=== PATIENT | male | born 1985 | race Caucasian/White ===

== ENCOUNTER 2018-10-27 11:16 | Emergency (ER) | payer OTHER ==
[~2018-10-27] VITALS: Ht 182.9 cm; Wt 79.4 kg
[~2018-10-27 11:16] MED LIST: ATIVAN0.5 MG PO
[2018-10-27 11:54] LABS: ABSOLUTE EOSINOPHILS 0.1 thou/uL (0.0-0.7); ABSOLUTE LYMPHOCYTES 1.7 thou/uL (0.8-5.3); ABSOLUTE MONOCYTES 0.5 thou/uL (0.0-1.2); ABSOLUTE NEUTROPHILS 4.9 thou/uL (1.6-8.1); BASOPHILS 0.5 %; EOSINOPHILS 1.5 %; HEMATOCRIT 37.4 % (42.0-52.0); HEMOGLOBIN 12.9 gm/dL (14.0-18.0); LYMPHOCYTES 23.3 %; MCH 30.5 pg (26.0-34.0); MCHC 34.6 g/dL (28.0-37.0); MCV 88.2 fL (80.0-100.0); MONOCYTES 6.3 %; MPV 6.5 fl. (7.2-11.1); NUCLEATED RBCS 0 /100WBC; PLATELET COUNT* 238 thou/uL (150-400); POLYS 68.4 %; RBC 4.24 mil/uL (4.50-6.00); RDW-CV 13.5 % (10.5-14.5); WBC 7.1 thou/uL (4.0-11.0)
[2018-10-27 12:14] LABS: ALBUMIN 3.4 g/dL (3.4-5.0); ALKALINE PHOSPHATASE 59 U/L (46-116); ANION GAP 6 mmol/L (7-16); BUN 14 mg/dL (7-18); CHLORIDE 105 mmol/L (98-107); CO2 31 mmol/L (21-32); CREATININE 1.5 mg/dL (0.6-1.3); GLUCOSE 81 mg/dL (70-99); LIPASE 94 U/L (73-393); POTASSIUM 3.6 mmol/L (3.5-5.1); SGOT 37 U/L (15-37); SGPT 109 U/L (30-65); SODIUM 142 mmol/L (136-145); TOTAL BILIRUBIN 0.3 mg/dL (<0.1-1.0); TOTAL PROTEIN 6.2 g/dL (6.4-8.2); TROPONIN-I LEVEL <0.06 ng/mL (<0.06)
[2018-10-27] MEDS ORDERED: ONDANSETRON HCL4 M2 PO (13:30)
[2018-10-27] MEDS ORDERED: NABUMETONE 750750 M1 PO (13:30)
[2018-10-27 13:41] LABS: URINE BILIRUBIN NEGATIVE (Negative); URINE BLOOD NEGATIVE (Negative); URINE CLARITY CLEAR; URINE COLOR YELLOW; URINE GLUCOSE-RANDOM NEGATIVE (Negative); URINE KETONES NEGATIVE (Negative); URINE LEUKOCYTES-REFLEX NEGATIVE (Negative); URINE NITRITE-REFLEX NEGATIVE (Negative); URINE PROTEIN NEGATIVE (Negative); URINE SPECIFIC GRAVITY <= 1.005 (1.005-1.030); URINE UROBILINOGEN 0.2 E.U./dl (0.2-1.0)
[2018-10-27 13:57] LABS: AMP/METHAMP POSITIVE (Negative); BARBITURATES Negative (Negative); BENZODIAZEPINES Negative (Negative); COCAINE Negative (Negative); METHADONE Negative (Negative); OPIATES Negative (Negative); PCP Negative (Negative); THC Negative (Negative)
[2018-10-27 14:24] VITALS: BP 118/69
--- NOTE | 2018-10-27 15:17 | EKG ---
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 10/27/18 1516 1220 1220 Parker Jackman MD, FACC /EPI
== END 2018-10-27 14:24 | disposition home or self-care (01) ==
LOC: M.ERS 11:16
PROVIDERS: Nurse Practitioner Family
DX: R10.11 Right upper quadrant pain (principal); F15.10 Other stimulant abuse, uncomplicated; E86.0 Dehydration; F17.200 Nicotine dependence, unspecified, uncomplicated

== ENCOUNTER 2019-08-27 07:08 | Inpatient (IN) | payer OTHER ==
[2019-08-27] VITALS (123 sets, daily range): BP systolic 57–152; BP diastolic 33–94
[~2019-08-27] VITALS: Ht 182.9 cm; Wt 75.8 kg
[~2019-08-27 07:08] MED LIST changes: +NABUMETONE 750750 M1 PO; +ONDANSETRON HCL4 M2 PO
[2019-08-27 08:29] LABS: HEMATOCRIT 37.7 % (42.0-52.0); HEMOGLOBIN 13.2 gm/dL (14.0-18.0); MCH 30.8 pg (26.0-34.0); MCHC 34.9 g/dL (28.0-37.0); MCV 88.2 fL (80.0-100.0); MPV 6.6 fl. (7.2-11.1); NUCLEATED RBCS 0 /100WBC; PLATELET COUNT* 192 thou/uL (150-400); RBC 4.28 mil/uL (4.50-6.00); RDW-CV 11.8 % (10.5-14.5)
[2019-08-27 08:41] LABS: CALCIUM 8.3 mg/dL (8.5-10.1); CREATININE 1.7 mg/dL (0.6-1.3); POTASSIUM 3.4 mmol/L (3.5-5.1)
[2019-08-27 08:45] LABS: ALBUMIN 3.3 g/dL (3.4-5.0); TOTAL PROTEIN 6.3 g/dL (6.4-8.2)
[2019-08-27 08:54] LABS: INFLUENZA A ANTIGEN Negative (Negative); INFLUENZA B ANTIGEN Negative (Negative)
[2019-08-27 09:14] LABS: APTT 26.3 Seconds (25.0-31.3); INR 1.2; PROTIME 11.9 Seconds (9.20-11.50)
[2019-08-27 09:28] LABS: URINE BLOOD NEGATIVE (Negative); URINE CLARITY CLEAR; URINE COLOR DARK YELLOW; URINE GLUCOSE-RANDOM NEGATIVE (Negative); URINE KETONES TRACE (Negative); URINE LEUKOCYTES-REFLEX NEGATIVE (Negative); URINE NITRITE-REFLEX NEGATIVE (Negative); URINE PROTEIN 2+ (Negative)
--- NOTE | 2019-08-27 09:29 | NUR ---
PT ACCIDENTLY PUULLED IV OUT
[2019-08-27 09:31] LABS: ICTOTEST (BILI CONFIRMATORY) Positive (Negative); URINE BILIRUBIN 2+ (Negative)
[2019-08-27 09:36] LABS: AMP/METHAMP POSITIVE (Negative); BARBITURATES Negative (Negative); BENZODIAZEPINES Negative (Negative); COCAINE Negative (Negative); METHADONE Negative (Negative); OPIATES POSITIVE (Negative); PCP Negative (Negative); THC Negative (Negative)
[2019-08-27 09:39] LABS: SQUAMOUS 0-3 Few /LPF (0-3)
[2019-08-27 09:40] LABS: URINE RBC 0-2 Rare /HPF (0-2); URINE WBC-REFLEX 0-5 Rare /HPF (0-5)
[2019-08-27 09:41] LABS: COARSE GRANULAR CASTS 0-3 Few /LPF (None Seen); CRYSTALS None Seen /LPF (None Seen); HYALINE CASTS >10 Many /LPF (None Seen); MUCUS >6 Heavy strn/LPF (None Seen)
--- NOTE | 2019-08-27 10:03 | NUR ---
PT VS UNSTABLE NOTIFIED PT MOVED TO ER ROOM 1 FOR CENTRAL LINE PLACEMNET
--- NOTE | 2019-08-27 11:04 | NUR ---
CENTRAL LINE PLACED BY REJ. CONSENT SIGNED. XRAY IN ROOM. PLACEMENT CONFIRMED BY .
[2019-08-27 11:11] LABS: ABSOLUTE LYMPHOCYTES 0.1 thou/uL (0.8-5.3); ABSOLUTE NEUTROPHILS 3.8 thou/uL (1.6-8.1); PLATELET ESTIMATE ADEQUATE
[2019-08-27 11:12] LABS: ANISOCYTOSIS 1+; POIKILOCYTOSIS 1+
--- NOTE | 2019-08-27 19:03 | NUR ---
ASSUMED CARE FROM ER NURSE. PATIENT MADE COMFORTABLE IN ROOM AND PLACED ON THE MONITOR. PATIENT BP LOW, PLACED ON LEVOPHED PER ORDERS AND TITRATED NEEDED. PATIENT C/O PAIN ALL OVER HOWEVER REALLY C/O ABDOMINAL PAIN. ONCE BP WAS STABLE CALL PLACED TO MD FOR PAIN MEDICATION ORDERS. MORPHINE GIVEN PER ORDERS AND DID RELIEVE A GREAT DEAL OF THE PAIN. PATIENT BROTHER RODOLFO WAS AT BEDSIDE THIS AFTERNOON AND TOLD THIS NURSE THAT THE PATIENT WAS IN THIS HOSPITAL 2 YEARS AGO FOR WHAT HE BELIEVED TO BE THE SAME REASON THIS TIME. 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 DR QUESADA WAS CALLED AND MADE AWARE OR THE NEW FINDINGS. DR SCALES CONSULTED AND DID SEE THE PATIENT. NO FURTHER CONCERNS AT THIS TIME. WILL CONTINUE TO MONITOR AND CARE PER PLAN OF CARE.
[2019-08-28] VITALS (82 sets, daily range): BP systolic 97–170; BP diastolic 39–125
[2019-08-28 06:11] LABS: HEPATITIS B SURFACE AG Negative (Negative)
--- NOTE | 2019-08-28 07:25 | NUR ---
ASSESSMENTS CHARTED. SPOKE WITH DR. DRAKE ABOUT INCREASING ATIVAN ORDER TO TREAT DRUG WITHDRAWAL SYMPTOMS. ORDERS RECEIVED. PATIENT FREQUENTLY PULLING OFF CABLES AND LINES AND ATTEMPTING TO GET OUT OF BED. FALL PRECAUTIONS AND BED ALARM IN PLACE. PATIENT REMAINS IN CONTACT ISOLATION FOR MRSA. PATIENT SCHEDULED FOR ABDOMINAL ULTRASOUND IN AM. HAS BEEN NPO FOR THE DURATION OF THE SHIFT.
[2019-08-28 10:11] LABS: HEMATOCRIT 35.9 % (42.0-52.0); HEMOGLOBIN 12.5 gm/dL (14.0-18.0); MCH 30.7 pg (26.0-34.0); MCHC 34.8 g/dL (28.0-37.0); MCV 88.1 fL (80.0-100.0); MPV 7.5 fl. (7.2-11.1); NUCLEATED RBCS 0 /100WBC; PLATELET COUNT* 150 thou/uL (150-400); RBC 4.07 mil/uL (4.50-6.00); RDW-CV 11.7 % (10.5-14.5)
[2019-08-28 10:12] LABS: WBC 27.4 thou/uL (4.0-11.0)
[2019-08-28 10:23] LABS: CALCIUM 7.5 mg/dL (8.5-10.1); MAGNESIUM 1.3 mg/dL (1.8-2.4); PHOSPHORUS* 2.3 mg/dL (2.5-4.9)
[2019-08-28 10:25] LABS: ALBUMIN 2.8 g/dL (3.4-5.0); CALCIUM 7.5 mg/dL (8.5-10.1); CREATININE 1.1 mg/dL (0.6-1.3); POTASSIUM 3.7 mmol/L (3.5-5.1); TOTAL BILIRUBIN 2.1 mg/dL (<0.1-1.0); TOTAL PROTEIN 5.8 g/dL (6.4-8.2)
[2019-08-28 10:26] LABS: INR 1.4; PROTIME 13.8 Seconds (9.20-11.50)
--- NOTE | 2019-08-28 10:34 | EKG ---
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 : 1985 Requested By: Teofilo Crockett Order Number: [id number] MD: Teto Steen Measurements Intervals [place] Rate: 112 P: 63 AL: 160 QRS: 83 QRSD: 116 T: 31 QT: 336 QTc: 459 Interpretive Statements Sinus tachycardia Nonspecific intraventricular conduction delay Borderline ST elevation, anterolateral leads Compared to ECG 10/27/2018 12:20:49 ST (T wave) deviation now present Sinus rhythm no longer present Electronically Signed On 08-28-2019 10:33:20 CORPORATE TRAVEL MANAGER by Teto Steen [email or web address] <ELECTRONICALLY SIGNED> By: Manuel Steen MD, [facility] 08/28/19 1033 1017 1017 Manuel Steen MD, [facility] /EPI
[2019-08-28 10:36] LABS: % SATURATION 4 % (20-39); IRON 8 ug/dL (50-175)
[2019-08-28 11:01] LABS: ABSOLUTE LYMPHOCYTES 2.2 thou/uL (0.8-5.3); ABSOLUTE MONOCYTES 0.5 thou/uL (0.0-1.2); ABSOLUTE NEUTROPHILS 24.7 thou/uL (1.6-8.1); METAMYELOCYTES 1 %; PLATELET ESTIMATE ADEQUATE
[2019-08-28 11:04] LABS: TOXIC GRANULATION 1+
[2019-08-28 17:25] LABS: URINE BILIRUBIN NEGATIVE (Negative); URINE BLOOD 2+ (Negative); URINE CLARITY CLEAR; URINE COLOR YELLOW; URINE GLUCOSE-RANDOM NEGATIVE (Negative); URINE KETONES NEGATIVE (Negative); URINE LEUKOCYTES-REFLEX NEGATIVE (Negative); URINE NITRITE-REFLEX NEGATIVE (Negative); URINE PROTEIN NEGATIVE (Negative); URINE SPECIFIC GRAVITY 1.015 (1.005-1.030)
[2019-08-28 17:32] LABS: AMP/METHAMP POSITIVE (Negative); BARBITURATES Negative (Negative); BENZODIAZEPINES Negative (Negative); COCAINE Negative (Negative); METHADONE Negative (Negative); OPIATES POSITIVE (Negative); PCP Negative (Negative); THC Negative (Negative)
[2019-08-28 17:36] LABS: SQUAMOUS 0-3 Few /LPF (0-3)
[2019-08-28 17:37] LABS: BACTERIA-REFLEX 1-9 Few /HPF (None Seen); CASTS None Seen /LPF (None Seen); CRYSTALS None Seen /LPF (None Seen); MUCUS None Seen strn/LPF (None Seen); URINE WBC-REFLEX 0-5 Rare /HPF (0-5)
[2019-08-29] VITALS (18 sets, daily range): BP systolic 100–144; BP diastolic 59–84
[2019-08-29 02:06] LABS: HIV-1/HIV-2 ANTIBODY Non Reactive (Non Reactive)
--- NOTE | 2019-08-29 04:35 | NUR ---
ASSUMED CARE AT 1900H,ON RA AND TOLERATED.PT WAS ORIENTED,SOMETIMES FORGETFUL AND AGITATED WITH HEADACHE.NO DISTRESS NOTED,PRN MEDS GIVEN.KEPT ORIENTED AND SAFE.CONTINUE MONITORING AND TOWARD GOALS.
[2019-08-29 09:50] LABS: ABSOLUTE BASOPHILS 0.1 thou/uL (0.0-0.2); ABSOLUTE EOSINOPHILS 0.1 thou/uL (0.0-0.7); ABSOLUTE LYMPHOCYTES 1.4 thou/uL (0.8-5.3); ABSOLUTE MONOCYTES 0.6 thou/uL (0.0-1.2); ABSOLUTE NEUTROPHILS 20.3 thou/uL (1.6-8.1); BASOPHILS 0.3 %; EOSINOPHILS 0.5 %; HEMATOCRIT 31.5 % (42.0-52.0); HEMOGLOBIN 11.1 gm/dL (14.0-18.0); LYMPHOCYTES 6.2 %; MCH 30.9 pg (26.0-34.0); MCHC 35.2 g/dL (28.0-37.0); MCV 87.8 fL (80.0-100.0); MONOCYTES 2.7 %; MPV 8.4 fl. (7.2-11.1); NUCLEATED RBCS 0 /100WBC; PLATELET COUNT* 119 thou/uL (150-400); POLYS 90.3 %; RBC 3.58 mil/uL (4.50-6.00); WBC 22.4 thou/uL (4.0-11.0)
[2019-08-29 10:00] LABS: ALBUMIN 2.8 g/dL (3.4-5.0); CALCIUM 8.1 mg/dL (8.5-10.1); POTASSIUM 3.4 mmol/L (3.5-5.1); TOTAL BILIRUBIN 1.2 mg/dL (<0.1-1.0); TOTAL PROTEIN 5.4 g/dL (6.4-8.2)
--- NOTE | 2019-08-29 10:56 | NUR ---
ICU rounds: Pt in and out of alertness. Pt has enlarged liver. Hx of ETOH and meth abuse. 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 Pt having meth w/drawals. Septic. Droplet precautions pending antiviral panel. Per nurse, brother willing to assist at dc, brother wanting inpt drug rehab. Pt is patient pay, continues to work, but [employer] to eval for MYRNA. CM to reach out brother.
--- NOTE | 2019-08-29 17:03 | EKG ---
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: : 1985 Requested By: Zak Parnell Order Number: [id number] MD: Elmo Andres Measurements Intervals [place] Rate: 76 P: 0 ND: 133 QRS: 71 QRSD: 109 T: 52 QT: 391 QTc: 440 Interpretive Statements Sinus rhythm RSR' in V1 or V2, right VCD or RVH Compared to ECG 08/27/2019 10:17:37 Right ventricular hypertrophy now present RSR' in V1 or V2 now present Sinus tachycardia no longer present Intraventricular conduction delay no longer present ST (T wave) deviation no longer present Electronically Signed On 08-29-2019 17:02:58 CROSS TIE MAKER by Elmo Andres [email or web address] <ELECTRONICALLY SIGNED> By: Elmo Andres MD, FACC 08/29/19 1702 1252 1252 Elmo Andres MD, FAC /EPI
--- NOTE | 2019-08-29 18:48 | NUR ---
PATIENT SEEN BY DR. SANDOVAL . NO ORDERS RECEIVED AT THIS TIME.
[2019-08-30] VITALS (7 sets, daily range): BP systolic 107–144; BP diastolic 58–100
--- NOTE | 2019-08-30 04:45 | NUR ---
VITALS STABLE, AFEBRILE. PT COMPLAINS OF CONSTANT,THROBBING HEADACHE. ANXIOUS TO GET OUT OF BED AND WORRIED ABOUT HIS ELECTRICITY BILL HE HAS TO TAKE CARE OF. WONDERING IF HE COULD GET DISCHARGED TO TAKE CARE OF THAT AND GET ADMITTED BACK. PLACED ON SEIZURE PRECAUTIONS. STEADY ON FEET TO USE BEDSIDE COMMODE, BMX1. UOP 3000 CC. OTHERWISE UNEVENTFUL NIGHT. WILL CONTINUE MONITORING.
[2019-08-30 04:47] LABS: CALCIUM 7.9 mg/dL (8.5-10.1); CREATININE 0.9 mg/dL (0.6-1.3); MAGNESIUM 1.7 mg/dL (1.8-2.4); PHOSPHORUS* 2.3 mg/dL (2.5-4.9); POTASSIUM 3.2 mmol/L (3.5-5.1)
[2019-08-30 10:10] LABS: HEPATITIS B SURFACE AG Negative (Negative)
--- NOTE | 2019-08-30 13:59 | NUR ---
Pt left AMA
[2019-08-30 14:09] LABS: HCV QUANT BY PCR 33900 IU/mL (())
--- NOTE | 2019-08-30 14:51 | NUR ---
PER [employer], PT IS NOT ELIGIBLE FOR MEDICAID
--- NOTE | 2019-08-31 07:03 | NUR ---
PT LEFT AMA ON 08/30/19. PT INFORMED OF POSSIBLE DECLINE OF ILLNESS IF HE DISCHARGED. PT VERBALIZED UNDERSTANDING AND STATED THAT HE WANTED DISCHARGE. LIJ AND MURPHY CATHETER REMOVED.
[2019-08-31 16:07] LABS: ADENOVIRUS Negative (Negative); INFLUENZA A Negative (Negative); INFLUENZA B Negative (Negative); METAPNEUMOVIRUS Negative (Negative); PARAINFLUENZA 1 Negative (Negative); PARAINFLUENZA 2 Negative (Negative); PARAINFLUENZA 3 Negative (Negative); RHINOVIRUS Negative (Negative); RSV A Negative (Negative); RSV B Negative (Negative)
== END 2019-08-30 10:53 | disposition left against medical advice (07) | DRG 871 ==
LOC: M.ERS 07:08 → M.ICU 11:15 → M.TBA-ER 11:15 → M.ICU 12:01
PROVIDERS: Emergency Medicine; Specialist; ADMIT Internal Medicine
PROC: 02HV33Z Insertion of Infusion Device into Superior Vena Cava, Percutaneous Approach (ICD-10-PCS; principal; 2019-08-27)
DX: A41.9 Sepsis, unspecified organism (principal); R65.21 Severe sepsis with septic shock; J15.212 Pneumonia due to Methicillin resistant Staphylococcus aureus; F15.921 Other stimulant use, unspecified with intoxication delirium; K80.00 Calculus of gallbladder with acute cholecystitis without obstruction; I95.9 Hypotension, unspecified; F17.210 Nicotine dependence, cigarettes, uncomplicated; E87.6 Hypokalemia; B19.20 Unspecified viral hepatitis C without hepatic coma; T43.625A Adverse effect of amphetamines, initial encounter; D64.9 Anemia, unspecified; E80.6 Other disorders of bilirubin metabolism; R74.0 Nonspecific elevation of levels of transaminase and lactic acid dehydrogenase [LDH]; G43.909 Migraine, unspecified, not intractable, without status migrainosus; Z86.14 Personal history of Methicillin resistant Staphylococcus aureus infection; Z88.8 Allergy status to other drugs, medicaments and biological substances; Y92.89 Other specified places as the place of occurrence of the external cause; Z79.899 Other long term (current) drug therapy; Z53.29 Procedure and treatment not carried out because of patient's decision for other reasons